=== PATIENT | female | born 1985 | race Two or more races ===

== ENCOUNTER → 2024-06-11 09:58 | Outpatient (BNVA) | payer OTHER, SELFPAY | PROVIDERS: Visit Provider Nurse Practitioner Family | DX: Z12.4 Encounter for screening for malignant neoplasm of cervix (principal) | CPT/HCPCS: 87624 ==

== ENCOUNTER 2024-06-24 08:42 | Outpatient (CLI) | payer OTHER, SELFPAY ==
--- NOTE | 2024-06-24 08:56 | XR_ITS ---
WS: [id number] Cervical spine, 7 views including flexion, extension and neutral position, both obliques, odontoid view, AP view, 06/24/2024 Clinical Data: M50.30 - Other cervical disc degeneration, unspecified ce... Comparison: None. Findings: No compression fractures are seen. The disc heights are normal. There is no prevertebral soft tissue swelling. The odontoid is unremarkable. The soft tissues of the neck and the lung apices are normal. There is a small anterior inferior spur of the C5 vertebra. The oblique images show no neural foraminal encroachment. There is no instability on flexion or extension. XR/XR cervical spine min 6V [id number] Impression: 1. Minimal osteoarthritis anterior inferior aspect C5. 2. No instability on flexion or extension. 3. No foraminal encroachment on oblique images.
--- NOTE | 2024-06-24 08:59 | US_ITS ---
WS: [id number] BILATERAL 3D TOMOSYNTHESIS DIGITAL DIAGNOSTIC MAMMOGRAPHY WITH CAD CLINICAL INFORMATION: N64.4 - Mastodynia HISTORY: RIGHT breast pain COMPARISON: Baseline TECHNIQUE: Bilateral CC, MLO, and ML views. FINDINGS: Scattered fibroglandular densities bilaterally. Pain marker upper outer RIGHT breast. Ultrasound of this area is pending. No other suspicious abnormalities. ULTRASOUND BREAST RIGHT TECHNIQUE: Ultrasound right breast focused area of concern. CLINICAL INFORMATION: N64.4 - Mastodynia FINDINGS: Ultrasound upper outer quadrant RIGHT breast in the area of concern. Normal underlying parenchymal tissue. No suspicious findings in this area. US/US breast RT limited* [id number] IMPRESSION: DENSITY: There are scattered areas of fibroglandular density. BI-RADS: 2 - Benign. FOLLOW UP: Age 42 Recommend annual screening mammography age 42
[2024-06-24 09:30] LABS: Basophils # 0.1 10^3/uL (0.0-0.1); Basophils % 0.5 %; Eosinophils # 0.2 10^3/uL (0.0-0.8); Eosinophils % 1.8 %; Hematocrit 40.7 % (36-47); Lymphocytes # 3.4 10^3/uL (0.8-4.8); Lymphocytes % 35.4 %; Mean Corpuscular HGB Conc 32.9 g/dL (30-55); Mean Corpuscular Hemoglobin 29.1 pg (27-33); Mean Corpuscular Volume 88.3 fl (85-98); Mean Platelet Volume 9.9 fL (7.4-10.4); Monocytes # 0.4 10^3/uL (0.2-0.9); Monocytes % 4.4 %; Neutrophils % 57.5 %; Nucleated Red Blood Cells % 0 %; Platelet Count 235 10^3/cmm (157-399); Red Blood Count 4.61 10^6/uL (3.85-5.65); Red Cell Distribution Width 13.1 % (12.1-15.1); White Blood Count 9.56 10^3/uL (3.29-11.43)
--- NOTE | 2024-06-24 09:30 | MM_ITS ---
WS: [id number] BILATERAL 3D TOMOSYNTHESIS DIGITAL DIAGNOSTIC MAMMOGRAPHY WITH CAD CLINICAL INFORMATION: N64.4 - Mastodynia HISTORY: RIGHT breast pain COMPARISON: Baseline TECHNIQUE: Bilateral CC, MLO, and ML views. FINDINGS: Scattered fibroglandular densities bilaterally. Pain marker upper outer RIGHT breast. Ultrasound of this area is pending. No other suspicious abnormalities. ULTRASOUND BREAST RIGHT TECHNIQUE: Ultrasound right breast focused area of concern. CLINICAL INFORMATION: N64.4 - Mastodynia FINDINGS: Ultrasound upper outer quadrant RIGHT breast in the area of concern. Normal underlying parenchymal tissue. No suspicious findings in this area. MM/MM diag BI tomosynthesis [id number] IMPRESSION: DENSITY: There are scattered areas of fibroglandular density. BI-RADS: 2 - Benign. FOLLOW UP: Age 42 Recommend annual screening mammography age 42
[2024-06-24 09:32] LABS: Bilirubin Urine Negative (Negative); Blood Urine Negative (Negative); Glucose Urine UA Negative (Normal); Ketones Urine Negative (Negative); Leukocyte Esterase Urine Negative (Negative); Nitrate Urine Negative (Negative); Protein Urine Negative (Negative); Specific Gravity, Urine 1.013 (1.005-1.030); Urine Appearance Clear (CLEAR); Urine Color Yellow (Yellow); Urobilinogen Urine 0.2 mg/dL (Negative)
[2024-06-24 09:35] LABS: Bacteria Urine None Seen /hpf; Hyaline Casts Urine 0-4 /lpf; RBC Urine 0-2 /hpf (0-2); Squamous Epithelial Cell Urine 0-5 /hpf (0-5); WBC Urine 0-5 /hpf (0-5)
[2024-06-24 09:48] LABS: Estmated Average Glucose 94; Hemoglobin A1C 4.9 % (4.0-6.0)
[2024-06-24 09:58] LABS: Alanine Aminotransferase 9 U/L (0-33); Albumin Level 3.8 g/dL (3.5-5.2); Alkaline Phosphatase 75 U/L (35-105); Anion Gap 15.3 (5-19); Aspartate Amino Transferase 13 U/L (0-32); Blood Urea Nitrogen 11 mg/dL (6-20); Calcium 8.9 mg/dL (8.5-10.5); Carbon Dioxide 24 mmol/L (22-29); Chloride 104 mmol/L (98-107); Chol HDL Ratio 3.87 mg/dL (0.0-4.40); Cholesterol 205 mg/dL (0-200); Globulin 3.4 g/dL (1.3-4.6); Glomerular Filtration Rate 94.2 mL/min (90-130); Glucose 86 mg/dL (65-115); HDL Cholesterol 53 mg/dL (60-100); LDL Cholesterol Calculated 125 mg/dL (50-129); LDL HDL Ratio 2.36 RATIO (0.00-3.22); Osmolality Calculated 287 mOsm/kg (285-295); Potassium 4.3 mmol/L (3.5-5.1); Sodium 139 mmol/L (136-145); Total Bilirubin 0.3 mg/dL (0.15-1.2); Total Protein 7.2 g/dL (6.6-8.7); Triglycerides 134 mg/dL (0-150)
== END 2024-06-24 08:43 | disposition home or self-care (01) ==
PROVIDERS: PCP Nurse Practitioner Family; Visit Provider Nurse Practitioner Family
DX: M50.30 Other cervical disc degeneration, unspecified cervical region (principal); S09.90XA Unspecified injury of head, initial encounter; S19.9XXA Unspecified injury of neck, initial encounter; V89.2XXA Person injured in unspecified motor-vehicle accident, traffic, initial encounter; Z00.00 Encounter for general adult medical examination without abnormal findings; N64.4 Mastodynia; M77.8 Other enthesopathies, not elsewhere classified; M46.02 Spinal enthesopathy, cervical region; R92.323 Mammographic fibroglandular density, bilateral breasts
CPT/HCPCS: 36415; 72052; 76642; 77062; 80053; 80061; 81001; 83036; 84443; 85025; G0279

== ENCOUNTER 2024-07-08 05:00 | Outpatient (RCR) | payer OTHER, SELFPAY | END 2024-08-07 23:59 | disposition home or self-care (01) | LOC: WPT 05:00 | PROVIDERS: PCP Nurse Practitioner Family; Visit Provider Nurse Practitioner Family | DX: M54.2 Cervicalgia (principal) | CPT/HCPCS: 97110; 97112; 97161; 97530 ==

== ENCOUNTER 2024-08-08 05:00 | Outpatient (RCR) | payer OTHER, SELFPAY | END 2024-09-06 23:59 | disposition home or self-care (01) | LOC: WPT 05:00 | PROVIDERS: PCP Nurse Practitioner Family; Visit Provider Nurse Practitioner Family | DX: M54.2 Cervicalgia (principal) | CPT/HCPCS: 97110; 97530 ==

== ENCOUNTER → 2024-12-15 08:24 | Outpatient (BNVA) | payer OTHER, SELFPAY | PROVIDERS: PCP Nurse Practitioner Family; Visit Provider Nurse Practitioner Family | DX: K52.9 Noninfective gastroenteritis and colitis, unspecified (principal) | CPT/HCPCS: 82785; 86001; 86003; 86008 ==

== ENCOUNTER → 2025-02-16 14:18 | Outpatient (BNVA) | payer OTHER, SELFPAY | PROVIDERS: PCP Nurse Practitioner Family; Visit Provider Nurse Practitioner Women's Health | DX: R23.2 Flushing (principal) | CPT/HCPCS: 82306; 83001; 83036; 83520; 84146; 84402; 84403; 84439; 84443; 84481 ==